=== PATIENT | male | born 1990 | race Caucasian/White ===

== ENCOUNTER 2018-09-17 16:00 | Emergency (ER) | payer OTHER ==
[~2018-09-17] VITALS: Ht 180.3 cm; Wt 77.1 kg
[~2018-09-17 16:00] MED LIST: LANSOPRAZOLE30 MG PO; ZOFRAN ODT4 MG PO
[2018-09-17] MEDS ORDERED: IBUPROFEN 600600 M1 PO (17:11)
[2018-09-17 17:24] VITALS: BP 124/72
== END 2018-09-17 17:25 | disposition home or self-care (01) ==
LOC: M.ERS 16:00
DX: S80.12XA Contusion of left lower leg, initial encounter (principal); F17.210 Nicotine dependence, cigarettes, uncomplicated; W23.0XXA Caught, crushed, jammed, or pinched between moving objects, initial encounter; Y93.89 Activity, other specified; Y92.89 Other specified places as the place of occurrence of the external cause; Y99.8 Other external cause status

== ENCOUNTER 2019-02-07 19:37 | Emergency (ER) | payer OTHER ==
[~2019-02-07] VITALS: Ht 177.8 cm; Wt 72.6 kg
[~2019-02-07 19:37] MED LIST changes: +IBUPROFEN 600600 M1 PO
[2019-02-07] MEDS ORDERED: AZITHROMYCIN 2250 MG PO (19:51)
[2019-02-07] MEDS ORDERED: SUPRAX400 M1 PO (19:51)
[2019-02-07 19:52] LABS: URINE BILIRUBIN NEGATIVE (Negative); URINE BLOOD NEGATIVE (Negative); URINE CLARITY CLEAR; URINE COLOR YELLOW; URINE GLUCOSE-RANDOM NEGATIVE (Negative); URINE KETONES NEGATIVE (Negative); URINE LEUKOCYTES-REFLEX TRACE (Negative); URINE NITRITE-REFLEX NEGATIVE (Negative); URINE PROTEIN 1+ (Negative); URINE UROBILINOGEN 0.2 E.U./dl (0.2-1.0)
[2019-02-07 19:59] LABS: MUCUS 0-3 Light strn/LPF (None Seen)
[2019-02-07 20:00] LABS: BACTERIA-REFLEX 1-9 Few /HPF (None Seen); SQUAMOUS 0-3 Few /LPF (0-3)
[2019-02-07 20:01] LABS: CASTS None Seen /LPF (None Seen); CRYSTALS None Seen /LPF (None Seen); URINE RBC None Seen /HPF (0-2); URINE WBC-REFLEX >25 Many /HPF (0-5)
[2019-02-07 20:02] VITALS: BP 123/83
== END 2019-02-07 20:03 | disposition home or self-care (01) ==
LOC: M.ERS 19:37
PROVIDERS: Family Medicine
DX: A64 Unspecified sexually transmitted disease (principal); F17.210 Nicotine dependence, cigarettes, uncomplicated

== ENCOUNTER 2019-03-22 19:16 | Emergency (ER) | payer OTHER ==
[~2019-03-22] VITALS: Ht 177.8 cm; Wt 74.8 kg
[~2019-03-22 19:16] MED LIST changes: +AZITHROMYCIN 2250 MG PO; +SUPRAX400 M1 PO
[2019-03-22 20:24] VITALS: BP 125/85
== END 2019-03-22 20:25 | disposition home or self-care (01) ==
LOC: M.ERS 19:16
DX: Z20.2 Contact with and (suspected) exposure to infections with a predominantly sexual mode of transmission (principal); F17.210 Nicotine dependence, cigarettes, uncomplicated

== ENCOUNTER 2021-03-15 22:51 | Emergency (ER) | payer OTHER ==
[~2021-03-15] VITALS: Ht 180.3 cm; Wt 77.1 kg
[2021-03-15] MEDS ORDERED: TRAMADOL 50 MG50 MG PO (23:47)
[2021-03-15 23:52] VITALS: BP 131/57
== END 2021-03-15 23:53 | disposition home or self-care (01) ==
LOC: M.ERS 22:51
DX: S93.401A Sprain of unspecified ligament of right ankle, initial encounter (principal); F17.210 Nicotine dependence, cigarettes, uncomplicated; X50.1XXA Overexertion from prolonged static or awkward postures, initial encounter; Y93.89 Activity, other specified; Y92.89 Other specified places as the place of occurrence of the external cause; Y99.8 Other external cause status